=== PATIENT | female | born 1985 | race African-American/Black ===

== ENCOUNTER 2021-03-30 05:27 | Observation (INO) | payer OTHER ==
[~2021-03-30] VITALS: Ht 165.1 cm; Wt 61.2 kg
--- NOTE | ~2021-03-30 | EMS ---
[facility] [address] [place] [address] EMS Patient Care Report Name: BRUCE ERWIN Room #: 450-P [facility] M.RIgnacio#: [id number] Admission: 03/30/21 Attend Phys: Liliam Sanchez DO Discharge: Date of : 87 Report #: [id number] THIS REPORT FOR: //name// Report Transmitted: 03/31/2021 11:21 EMS Care Summary [facility] MED-ACT Incident [id number] @ 03/30/2021 04:54 Incident Location [address] [place] [address] Patient BRUCE ERWIN Female, 36 Years 1985 Patient Address [address] [place] [address] Patient History None Reported, Patient Allergies No known allergies, Patient Medications None Reported, Chief Complaint "My cramps are really bad." Disposition Transported No Lights/[place] Dispatch Reason Breathing Problem Transported To [facility] Narrative M1144 was called for a 36y/o female pt that is having very painful period cramps. On EMS arrival pt is standing in hotel room and is showing some distress from pain. Pt is warm, pink and dry, GCS of 15, breathing is [facility] [address] [place] [address] EMS Patient Care Report Name: BRUCE ERWIN Room #: 450-P [facility] MIgnacioAn.#: [id number] Admission: 03/30/21 Attend Phys: Liliam Sanchez, DO Discharge: Date of : 87 Report #: [id number] non-labored and ABC's are intact. Pt states that she is on the 4th day of her period and around 2 am her cramps started to get worse. Pt states that she doesn't think there is a possibility that she is . Pt does have a hx of having bad period cramps. Pt states that her flow has gotten a little heavier tonight as well. Pt denies chest pain, SOB, nausea, vomiting, lightheadedness, dizziness, recent illness. Pt states she has taken no medications for the pain. Pt is sat on cot, secured via department policy then moved to unit. V/S monitored. Physical exam finds no abnormalities (pain does not get worse on palpation of lower abdomen) Pt reports no changes in symptoms for the duration of transport. Pt did rest comfortably on the cot for the duration of transport. Pt is taken to triage on arrival and report is given to charge nurse. Initial Vitals @05:38P: 105,R: 18,BP: 94/64,SpO2: 100, @05:18P: 110,R: 18,BP: 96/64,Pain: 4/10,Temp: 97.7F,SpO2: 98, Impression Abdominal Pain Procedures @05:17 Surgical Mask on Patient Response: Unchanged Timeline 04:52,Call Received 04:52,Psap Call 04:54,Dispatched 04:56,En Route 05:02,On Scene 05:08,At Patient 05:17,Surgical Mask on Patient,Response: Unchanged 05:18,BP: 96/64 M,PULSE: 110,RR: 18 R,SPO2: 98 Ox,ETCO2: ,BG: ,PAIN: 4,GCS: , 05:18,Depart Scene 05:27,At Destination 05:38,BP: 94/64 M,PULSE: 105,RR: 18 R,SPO2: 100 Ox,ETCO2: ,BG: ,PAIN: ,GCS: , 05:41,Call Closed Disclaimer v1.1 Copyright 2020 [employer] This EMS Care Summary contains data elements from the applicable legal record (which may be displayed differently). It is designed to provide pertinent information for the following purposes: continuity of care, clinical quality, and state data reporting. The complete legal record is available to ED staff and administrators of the receiving hospital in [employer]'s Patient Tracker. All data [address] [address] EMS Patient Care Report Name: BRUCE ERWIN Room #: 450-P ADM Brissa Hernandez#: [id number] Admission: 03/30/21 Attend Phys: Liliam Sanchez DO Discharge: Date of : [birth year] Report #: [id number] is provided "as is."
--- NOTE | ~2021-03-30 | EMS ---
[facility] [address] [place] [address] EMS Patient Care Report Name: BRUCE ERWIN Room #: REG JORDON Hernandez#: [id number] Admission: 03/30/21 Attend Phys: Discharge: Date of : 87 Report #: [id number] THIS REPORT FOR: //name// Report Transmitted: 03/30/2021 05:24 EMS Care Summary [facility] MED-ACT Incident [id number] @ 03/30/2021 04:54 Incident Location [address] [place] [address] Patient BRUCE ERWIN Female, 36 Years 1985 Patient Address [address] [place] [address] Patient History None Reported, Patient Allergies No known allergies, Patient Medications None Reported, Chief Complaint "My cramps are really bad." Disposition Transported No Lights/[place] Dispatch Reason Breathing Problem Transported To [facility] Narrative M1144 was called for a 36y/o female pt that is having very painful period cramps. On EMS arrival pt is standing in hotel room and is showing some distress from pain. Pt is warm, pink and dry, GCS of 15, breathing is [address] [address] EMS Patient Care Report Name: BRUCE ERWIN Room #: REG ER Melissa.#: [id number] Admission: 03/30/21 Attend Phys: Discharge: Date of : 87 Report #: [id number] non-labored and ABC's are intact. Pt states that she is on the 4th day of her period and around 2 am her cramps started to get worse. Pt states that she doesn't think there is a possibility that she is . Pt does have a hx of having bad period cramps. Pt states that her flow has gotten a little heavier tonight as well. Pt denies chest pain, SOB, nausea, vomiting, lightheadedness, dizziness, recent illness. Pt states she has taken no medications for the pain. Pt is sat on cot, secured via department policy then moved to unit. V/S monitored. Physical exam finds no abnormalities (pain does not get worse on palpation of lower abdomen) Pt reports no changes in symptoms for the duration of transport. Pt did rest comfortably on the cot for the duration of transport. Pt is taken to triage on arrival and report is given to charge nurse. Initial Vitals @05:38P: 105,R: 18,BP: 94/64,SpO2: 100, @05:18P: 110,R: 18,BP: 96/64,Pain: 4/10,Temp: 97.7F,SpO2: 98, Impression Abdominal Pain Procedures @05:17 Surgical Mask on Patient Response: Unchanged Timeline 04:52,Call Received 04:52,Psap Call 04:54,Dispatched 04:56,En Route 05:02,On Scene 05:08,At Patient 05:17,Surgical Mask on Patient,Response: Unchanged 05:18,BP: 96/64 M,PULSE: 110,RR: 18 R,SPO2: 98 Ox,ETCO2: ,BG: ,PAIN: 4,GCS: , 05:18,Depart Scene 05:27,At Destination 05:38,BP: 94/64 M,PULSE: 105,RR: 18 R,SPO2: 100 Ox,ETCO2: ,BG: ,PAIN: ,GCS: , 05:41,Call Closed Disclaimer v1.1 Copyright 2020 [employer] This EMS Care Summary contains data elements from the applicable legal record (which may be displayed differently). It is designed to provide pertinent information for the following purposes: continuity of care, clinical quality, and state data reporting. The complete legal record is available to ED staff and administrators of the receiving hospital in [employer]'s Patient Tracker. All data [facility] [address] [place] [address] EMS Patient Care Report Name: BRUCE ERWIN Room #: REG JORDON Hernandez#: [id number] Admission: 03/30/21 Attend Phys: Discharge: Date of : 87 Report #: [id number] is provided "as is."
[2021-03-30 05:31] VITALS: BP 92/60
[2021-03-30 06:33] LABS: RBC 2.32 mil/uL (4.20-5.00)
[2021-03-30 06:34] LABS: CALCIUM 8.6 mg/dL (8.5-10.1); CREATININE 0.7 mg/dL (0.6-1.0); POTASSIUM 3.9 mmol/L (3.5-5.1)
[2021-03-30 06:36] LABS: MCH 21.1 pg (26.0-34.0); MCHC 31.3 g/dL (28.0-37.0); MCV 67.5 fL (80.0-100.0); PLATELET COUNT 233 thou/uL (150-400); RDW 18.1 % (10.5-14.5); WBC 28.4 thou/uL (4.0-11.0)
[2021-03-30 06:50] LABS: HEMOGLOBIN 4.9 gm/dL (12.0-15.0)
[2021-03-30 06:51] LABS: HEMATOCRIT 15.7 % (37.0-47.0)
[2021-03-30 08:10] VITALS: BP 98/58
[2021-03-30 09:54] LABS: ABSOLUTE NEUTROPHILS 24.1 thou/uL (1.4-8.2); ANISOCYTOSIS 2+; HYPOCHROMASIA 2+; MICROCYTES 2+; NUCLEATED RBCS 1 /100WBC
[2021-03-30 09:55] LABS: LARGE PLATELETS OCCASIONAL; OVALOCYTES 1+; POIKILOCYTOSIS 1+
[2021-03-30 10:26] LABS: HEMATOCRIT 19.8 % (37.0-47.0); HEMOGLOBIN 6.3 gm/dL (12.0-15.0)
[2021-03-30 14:09] VITALS: BP 84/53
[2021-03-30 17:00] VITALS: BP 96/54
[2021-03-30 17:39] VITALS: BP 99/53
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
[2021-03-30 19:25] VITALS: BP 94/52
[2021-03-31 00:02] VITALS: BP 81/42
--- NOTE | 2021-03-31 04:00 | NUR ---
Denies pain all thro noc.Up with SBA. IV fluids and ABTs given. Remains on room air.BP on the lower side. NO excess bleeding in the NOC, She appears to have rested some.
[2021-03-31 05:15] VITALS: BP 91/50
[2021-03-31 06:10] LABS: HEMOGLOBIN 6.7 gm/dL (12.0-15.0); WBC 22.3 thou/uL (4.0-11.0)
[2021-03-31 06:12] LABS: MCH 26.7 pg (26.0-34.0); MCHC 33.8 g/dL (28.0-37.0); RBC 2.51 mil/uL (4.20-5.00); RDW 19.5 % (10.5-14.5)
[2021-03-31 06:34] LABS: HEMATOCRIT 19.8 % (37.0-47.0)
[2021-03-31 07:56] VITALS: BP 85/46
[2021-03-31 11:28] VITALS: BP 90/51
--- NOTE | 2021-03-31 12:45 | NUR ---
ASSUMED PT CARE THIS AM. PT A&OX4, ABLE TO MAKE NEEDS KNOWN. PATIENT REPORTING NO PAIN, NUMBNESS, OR TINGLING. PATIENT AMBULATORY TO THE RESTROOM AND CALLS OUT APPROPRIATELY FOR ASSISTANCE WHEN NEEDED. PATIENT IV REMAINS PATENT. PATIENT REMAINS ON TELEMETRY. CALL LIGHT WITHIN REACH.
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
[2021-03-31 15:39] VITALS: BP 90/49
[2021-03-31 20:20] VITALS: BP 96/57
[2021-04-01 01:10] VITALS: BP 99/52
[2021-04-01 04:08] VITALS: BP 95/55
--- NOTE | 2021-04-01 04:28 | NUR ---
ASSUMED PT CARE THIS PM. PT IS ALERT AND ORIENTED X4. PT DID NOT C/O PAIN OR LIGHTHEADEDNESS. PT HAD A SHOWER. PT STILL HAS LOW APPETITE. PT HAS NON-PITTING EDEMA TO FEET. MEDS WERE GIVEN PER EMAR ORDERS. PT DID NOT VERBALIZE ANY CONCERNS. FALL PRECAUTIONS IN PLACE. WILL CONTINUE TO MONITOR.
[2021-04-01 07:00] VITALS: BP 101/65
--- NOTE | 2021-04-01 11:07 | PATH ---
[facility] [address] [place] [address] PATHOLOGY RPT PROCEDURE Name: MARINA MELENDEZ Room #: 450-P [facility] M.R.#: [id number] Admission: 03/30/21 Date of : 87 Discharge: Report #: [id number] Path Case #: [id number] [facility] Accession Number: [id number] . 01 Material submitted: . endometrium - UTERINE CONTENTS . 01 Clinical history: . SEPTIC . 02 Diagnosis: Uterine contents, evacuation: - Fragments of chorionic villi, implantation site changes, hemorrhage, and acute inflammation associated with products of conception. (ANK:[facility]; 03/31/2021) [facility] 03/31/2021 1213 Local . 02 Electronically signed: . Shruti Montana MD, Pathologist NPI- [id number] . 01 Gross description: . The specimen is received in formalin, labeled "Marina Melendez, uterine contents". Received within four vacuum-trap containers is a large amount of pink-cleary to dusky chaparro-brown tissue admixed with blood coagulum measuring 21.8 x 15.9 x 2.1 cm in aggregate dimensions. Extensive examination of the specimen reveals no grossly distinct or embryonic tissue. Vesicular structures are not grossly identified. The specimen is submitted representatively in cassettes A1 through A6. ([facility]; 03/30/2021) [facility] 03/30/2021 1224 Local . 02 Pathologist provided ICD-10: O03.9 . 02 CPT . 993302 Specimen Comment: A courtesy copy of this report has been sent to [phone] Specimen Comment: Report sent to Specimen Comment: A duplicate report has been generated due to demographic updates. Performed at: 01 [facility] [address] [id number] MD Jigar Rodriguez MD Phone: [phone] Performed at: 02 [facility] [address] [place] [address] PATHOLOGY RPT PROCEDURE Name: MARINA MELENDEZ Room #: 450-P [facility] M.R.#: [id number] Admission: 03/30/21 Date of : 87 Discharge: Report #: [id number] Path Case #: [id number] [address] [place], [place] [id number] MD Rosalva Mcnulty MD Phone: [phone]
[2021-04-01 13:04] VITALS: BP 100/66
--- NOTE | 2021-04-01 14:46 | NUR ---
ASSUMED PT CARE THIS AM. PT A&OX4 AND ABLE TO MAKE NEEDS KNOWN. PATIENT REPORTING NO PAIN, NUMBNESS, OR TINGLING. PATIENT IS CONTINENT AND IS UP AD STAR TO RESTROOM. CALL LIGHT WITHIN REACH.
--- NOTE | 2021-04-01 16:33 | NUR ---
CARE TEAM INDICATED THAT PT IS MEDICALLY STABLE TO DC HOME THIS DAY. CM PROVIDED PT WITH A [facility]. CM FOLLOWING REGARDING DC PLANNING.
[2021-04-01 16:40] VITALS: BP 95/54
--- NOTE | 2021-04-01 18:29 | O ---
[facility] [place] [address] [place] [address] OPERATIVE REPORT Name: BRUCE ERWIN Room #: 450-P [facility] M.R.#: [id number] Admission: 03/30/21 Attend Phys: Liliam Sanchez DO Discharge: Date of : 87 Report #: [id number] THIS REPORT FOR: cc: NO FAMILY PHYSICIAN or PCP FAM - No family physician/PCP Liliam Sanchez DO ~ DATE OF SERVICE: 03/30/2021 PREOPERATIVE DIAGNOSES: 1. Incomplete . 2. Abdominal pelvic pain. 3. Hypotension. 4. Severe anemia. POSTOPERATIVE DIAGNOSES: 1. Incomplete . 2. Abdominal pelvic pain. 3. Hypotension. 4. Severe anemia. 5. Septic . SURGEON: Liliam Sanchez DO ANESTHESIA: General. OPERATIVE PROCEDURE: Suction, dilatation and curettage. INTRAVENOUS FLUIDS: 800 mL, one unit of packed red blood cells. ESTIMATED BLOOD LOSS: 1000 mL. INTRAOPERATIVE MEDICATIONS: 1. 10 units of Pitocin per IV. 2. 1 mL of Methergine IM. DESCRIPTION OF PROCEDURE: The patient was taken to the operating room where general anesthesia was administered and found to be adequate. She was then prepped and draped in normal sterile fashion in dorsal lithotomy position. A weighted speculum was placed in the patient's vagina. The anterior lip of the cervix was identified and grasped with an Allis clamp. The cervix was noted to be well dilated to approximately 1.5 cm. A #9 curved suction curette was then passed through the cervix into the uterine cavity after the cavity was sounded to be approximately 14 cm. Upon suction curettage, a strong odor was noted along with necrotic tissue and an extensive amount of suction curettage was performed. The suction curette was removed and sharp curettage was performed circumferentially. Products of conception were noted to still be present; [facility] [address] [place] [address] OPERATIVE REPORT Name: BRUCE ERWIN Room #: 450-P [facility]..#: [id number] Admission: 03/30/21 Attend Phys: Liliam Sanchez DO Discharge: Date of : 87 Report #: [id number] therefore, further suction curettage was performed circumferentially and an extensive amount of suction curettage was performed followed by sharp curettage until a gritty texture was noted circumferentially of the uterine cavity noting a good uterine cry. A last pass of suction curettage was performed with no remaining products of conception removed. The suction curette was then removed from the patient's uterus. The Allis clamp was removed from the patient's cervix. The anterior lip of the cervix was noted to be hemostatic. The speculum was removed from the patient's vagina. The patient tolerated the procedure well. Sponge and instrument counts were reported as correct and the patient was taken to the recovery room in stable condition. <ELECTRONICALLY SIGNED> By: Liliam Sanchez DO 04/01/21 1829 [id number] Liliam Sanchez DO /nt
[2021-04-01] MEDS ORDERED: CLEOCIN HCL150 MG PO (18:41)
[2021-04-01] MEDS ORDERED: AMOXICILLIN 50500 M1 PO (18:41)
[2021-04-01] MEDS ORDERED: IRON325 PO (18:41)
[2021-04-01] MEDS ORDERED: COLACE100 MG PO (18:41)
[2021-04-01 19:25] VITALS: BP 102/65
--- NOTE | 2021-04-01 20:10 | NUR ---
PT LEFT THE UNIT AT 2009 IN A STABLE CONDITION. PT DENIED ANY FORM OF DIZZINESS OR SOB. PT DID NOT EXPRESS ANY CONCERNS.
== END 2021-04-01 20:10 | disposition home or self-care (01) ==
LOC: ER 05:27 → 4W 12:29
PROVIDERS: Emergency Medicine; ADMIT Obstetrics & Gynecology; ATTEND Obstetrics & Gynecology
DX: O03.4 Incomplete spontaneous abortion without complication (principal); I95.9 Hypotension, unspecified; D64.9 Anemia, unspecified; R10.2 Pelvic and perineal pain; Z20.822 Contact with and (suspected) exposure to COVID-19; Z79.899 Other long term (current) drug therapy
CPT/HCPCS: 50101; 62110; 62900; 65090; 70005